=== PATIENT | female | born 1970 | race Caucasian/White ===

== ENCOUNTER 2017-01-19 15:21 | Emergency (ER) | payer MEDICAID, OTHER ==
[~2017-01-19] VITALS: Ht 154.9 cm; Wt 62.9 kg
[~2017-01-19 15:21] MED LIST: BACT PO; ESTR.3 PO; LYRI50CA2 PO
[2017-01-19 15:24] VITALS: BP 133/76; PULSE 101; RESP 18; TEMP 98.7; O2SAT 97
[2017-01-19] MEDS ORDERED: ESTR.3 PO (15:37)
[2017-01-19] MEDS ORDERED: LYRI50CA PO (15:37)
[2017-01-19] MEDS ORDERED: PRED10PA PO (15:39)
[2017-01-19] MEDS ORDERED: CYCL10TA PO (15:39)
[2017-01-19] MEDS ORDERED: HYDR-3516 PO (15:39)
--- NOTE | 2017-01-19 15:39 | PD ---
HPI Chief Complaint: Numbness/Tingling Time Seen by Provider: 15:35 Travel History International Travel<30 days: No Contact w/Intl Traveler<30days: No Traveled to known affect area: No History of Present Illness HPI Patient presents for aggravated lower back pain and right sciatic pain after cleaning house yesterday. Denies any misstep or fall. Denies trauma. Denies any gait abnormalities. PFSH Past Medical History Anxiety: Yes Depression: Yes Heart Rhythm Problems: Yes (MITRAL VALVE PROLAPSE) Cardiovascular Problems: Yes (MITRAL VALVE PROLAPSE) Diminished Hearing: No Gastrointestinal Disorders: Yes ("colitis") Genitourinary: Yes (COLITIS) Musculoskeletal: Yes (BACK PAIN) Immunizations Current: No ?: Not LMP: DAI : 6 Para: 5 Miscarriage: 2 : 0 Ovarian Cysts: Yes Tubal Ligation: Yes Past Surgical History Section: Yes Tonsillectomy: Yes Social History Alcohol Use: Yes (OCCASIONAL) Tobacco Use: Yes (1/2 PPD) Substance Use: No Allergies-Medications (Allergen,Severity, Reaction): Coded Allergies: No Known Allergies (Verified Adverse Reaction, Unknown, 01/19/17) Reported Meds & Prescriptions Reported Meds & Active Scripts Active Reported Premarin (Estrogens Conjugated) 0.3 Mg Tab 0.3 Mg PO DAILY Lyrica (Pregabalin) 50 Mg Cap 50 Mg PO TID Bactrim (Trimethoprim/Sulfamethoxazole) 80 Mg/400 Mg Tab 1 Tab PO BID Review of Systems General / Constitutional: No: Fever Eyes: No: Visual changes HENT: No: Headaches Cardiovascular: No: Chest Pain or Discomfort Respiratory: No: Shortness of Breath Gastrointestinal: No: Abdominal Pain Genitourinary: No: Dysuria Musculoskeletal: No: Pain Skin: No Rash Neurologic: No: Weakness Psychiatric: No: Depression Endocrine: No: Polydipsia Hematologic/Lymphatic: No: Easy Bruising Physical Exam Narrative GENERAL: Well-nourished, well-developed patient. SKIN: Focused skin assessment warm/dry. HEAD: Normocephalic. EYES: No scleral icterus. No injection or drainage. NECK: Supple, trachea midline. No JVD or lymphadenopathy. CARDIOVASCULAR: Regular rate and rhythm without murmurs, gallops, or rubs. RESPIRATORY: Breath sounds equal bilaterally. No accessory muscle use. GASTROINTESTINAL: Abdomen soft, non-tender, nondistended. MUSCULOSKELETAL: No cyanosis, or edema. BACK: Nontender without obvious deformity. No CVA tenderness. Examination lumbar spine reveals no midline tenderness right sided paraspinous pain radiating to the right gluteus Good flexion extension and internal rotation of both hips Data Data Last Documented VS Vital Signs Date Time Temp Pulse Resp B/P (MAP) Pulse Ox O2 Delivery O2 Flow Rate FiO2 01/19/17 15:24 98.7 101 18 133/76 (95) 97 MDM Medical Decision Making Medical Screen Exam Complete: Yes Emergency Medical Condition: Yes Differential Diagnosis Lumbar sacral degenerative disc disease, sciatic pain, vertebral fracture, lumbar radiculopathy Narrative Course Assessment and plan discussed with patient at bedside. Patient declined Toradol shot. Diagnosis Primary Impression: DDD (degenerative disc disease), lumbosacral Additional Impression: Sciatica Qualified Codes: M54.31 - Sciatica, right side Patient Instructions: General Instructions Additional Instructions: Encouraged nonsteroidal anti-inflammatories warm heat gentle stretching and strengthening and massage. Follow-up with PCP. Return to emergency room with any onset of new symptoms. Med/Other Pt SpecificInfo: Prescription(s) given Scripts Prednisone (21) 10 mg tab Dose Pack (Prednisone (21) 10 mg tab Dose Pack) 10 Mg Pack 10 MG PO DIRECTED for Inflammation, #1 DSPK 0 Refills Prov: Yonatan Sethi MD 01/19/17 Cyclobenzaprine (Flexeril) 10 Mg Tab 10 MG PO TID Y for MUSCLE SPASM, #15 TAB 0 Refills Prov: Yonatan Sethi MD 01/19/17 Hydrocodone-Acetaminophen (Hydrocodone-Acetaminophen) 5-325 mg Tab 1 TAB PO Q6H Y for PAIN, #15 TAB 0 Refills Prov: Yonatan Sethi MD 01/19/17 Disposition: 01 DISCHARGE HOME Condition: Good Yonatan Sethi MD Jan 19, 2017 15:39
== END 2017-01-19 15:49 | disposition home or self-care (01) ==
LOC: PHED 15:21
DX: M51.37 Other intervertebral disc degeneration, lumbosacral region (principal); M54.31 Sciatica, right side; I34.1 Nonrheumatic mitral (valve) prolapse; F32.9 Major depressive disorder, single episode, unspecified; F17.210 Nicotine dependence, cigarettes, uncomplicated; Z79.2 Long term (current) use of antibiotics; Z79.899 Other long term (current) drug therapy
CPT/HCPCS: 99284

== ENCOUNTER 2017-08-07 13:26 | Emergency (ER) | payer OTHER ==
[~2017-08-07] VITALS: Ht 154.9 cm; Wt 63.8 kg
[~2017-08-07 13:26] MED LIST changes: -BACT PO; +CYCL10TA PO; +HYDR-3516 PO; +LYRI50CA PO; -LYRI50CA2 PO; +PRED10PA PO
[2017-08-07 13:30] VITALS: BP 136/85; PULSE 85; RESP 16; TEMP 98.5; O2SAT 99
[2017-08-07] MEDS ORDERED: TRAM50TA PO (13:41)
[2017-08-07] MEDS ORDERED: BUPR100T4 PO (13:41)
[2017-08-07] MEDS ORDERED: SODIUM CHLORIDE 0.9% FLUSH 10 ML FLUSH IVF PRN (14:15)
[2017-08-07 14:17] LABS: BASOPHIL # 0.1 TH/MM3 (0-0.2); BASOPHIL % 2.1 % (0.0-2.0); EOSINOPHIL # 0.1 TH/MM3 (0-0.4); EOSINOPHIL % 1.8 % (0.0-4.0); HEMOGLOBIN 12.7 GM/DL (11.6-15.3); LYMPH % 24.8 % (9.0-44.0); LYMPHOCYTE # 1.5 TH/MM3 (1.0-4.8); MEAN CELL VOLUME 87.1 FL (80.0-100.0); MEAN CORPUSCULAR HEMOGLOBIN 27.6 PG (27.0-34.0); MEAN CORPUSCULAR HGB CONC 31.6 % (32.0-36.0); MEAN PLATELET VOLUME 7.8 FL (7.0-11.0); MONO % 6.4 % (0.0-8.0); MONOCYTE # 0.4 TH/MM3 (0-0.9); NEUT % 64.9 % (16.0-70.0); PLATELET COUNT 206 TH/MM3 (150-450); RED BLOOD COUNT 4.59 MIL/MM3 (4.00-5.30); RED CELL DISTRIBUTION WIDTH 12.6 % (11.6-17.2); WHITE BLOOD COUNT 6.1 TH/MM3 (4.0-11.0)
[2017-08-07 14:24] LABS: CHLORIDE 108 MEQ/L (98-107); SODIUM (NA) 139 MEQ/L (136-145)
[2017-08-07 14:26] LABS: CALCIUM 9.1 MG/DL (8.5-10.1)
[2017-08-07 14:27] LABS: BICARBONATE 23.8 MEQ/L (21.0-32.0); BLOOD UREA NITROGEN 17 MG/DL (7-18); GLUCOSE,RANDOM 106 MG/DL (74-106)
--- NOTE | 2017-08-07 14:27 | RADRPT ---
EXAM DATE: 08/07/2017 2:23 PM EDT AGE/SEX: 46 years / Female INDICATIONS: Left hand numbness. Difficulty walking. Resolved slurred speech. Cephalgia. Evaluate for cerebrovascular accident. CLINICAL DATA: This is the patient's initial encounter. Patient reports that signs and symptoms have been present for 1 day and indicates a pain score of 6/10. MEDICAL/SURGICAL HISTORY: Cardiovascular disease. Colitis. Tubal ligation. section. RADIATION DOSE: 56.19 CTDI (mGy) COMPARISON: No prior [facility] exams available for comparison. TECHNIQUE: CT of the head without contrast. Using automated exposure control and adjustment of the mA and/or kV according to patient size, radiation dose was kept as low as reasonably achievable to ob tain optimal diagnostic quality images. FINDINGS: There is no evidence for intracranial hemorrhage, mass effect, mass lesions, edema, or extra-axial fl uid collections. The visualized bony structures appear intact. The ventricles are normal size for t he patient's age. There are no signs of acute infarction for technique. CONCLUSION: Unremarkable study. Electronically signed by: Leny Alejandre MD 08/07/2017 2:25 PM EDT
[2017-08-07 14:30] LABS: CREATININE 0.78 MG/DL (0.50-1.00); GLOMERULAR FILTRATION RATE 79 ML/MIN (>89)
--- NOTE | 2017-08-07 14:30 | PD ---
HPI . Left upper extremity numbness Chief Complaint: Neuro Symptoms/ Deficits Time Seen by Provider: 13:51 Travel History International Travel<30 days: No Contact w/Intl Traveler<30days: No Traveled to known affect area: No History of Present Illness HPI Patient presents with a chief complaint of left upper extremity numbness. It seems that she has this frequently usually on awakening. The symptoms will later resolved. Today, she states that she also had slurred speech and was listing to the left. She states that she was having difficulty putting her thoughts together. She subsequently decided to come to us for evaluation. Her left upper extremity pain is rated 6/10. She is unaware of any modifying factors. PFSH Past Medical History Anxiety: Yes Depression: Yes Heart Rhythm Problems: Yes (MITRAL VALVE PROLAPSE) Cardiovascular Problems: Yes (MITRAL VALVE PROLAPSE) Diminished Hearing: No Gastrointestinal Disorders: Yes ("colitis") Genitourinary: Yes (COLITIS) Musculoskeletal: Yes (BACK PAIN) Immunizations Current: No Influenza Vaccination: No ?: Not : 6 Para: 5 Miscarriage: 2 : 0 Ovarian Cysts: Yes Tubal Ligation: Yes Past Surgical History Section: Yes Tonsillectomy: Yes Social History Alcohol Use: Yes (OCCASIONAL) Tobacco Use: Yes (1/2 PPD) Substance Use: No Allergies-Medications (Allergen,Severity, Reaction): Coded Allergies: No Known Allergies (Verified Adverse Reaction, Unknown, 08/07/17) Reported Meds & Prescriptions Reported Meds & Active Scripts Active Reported Bupropion HCl 100 Mg Tab 100 Mg PO BID Tramadol (Tramadol HCl) 50 Mg Tab 50 Mg PO Q4H PRN Review of Systems Except as stated in HPI: all other systems reviewed are Neg Eyes: No: Blurred Vision HENT: No: Headaches Cardiovascular: No: Chest Pain or Discomfort Respiratory: No: Cough, Shortness of Breath Gastrointestinal: No: Nausea, Vomiting Musculoskeletal: Positive: Myalgias, Pain (Left upper extremity), No: Limited ROM Neurologic: Positive: Ataxia, Change in Mentation, Slurred Speech, No: Headache Physical Exam Narrative GENERAL: This is a 46-year-old female who appears her stated age. She appears to be resting comfortably on the stretcher. SKIN: warm/dry. Normal color and turgor. Normal color and turgor. Normal color and turgor. HEAD: Normocephalic. Atraumatic. EYES: Pupils equal and round. Extraocular movements are intact. ENT: Mucous membranes pink and moist. NECK: Supple. Full range of motion without pain.. CARDIOVASCULAR: Regular rate and rhythm. Heart sounds are normal. RESPIRATORY: No accessory muscle use. Clear to auscultation. Breath sounds equal bilaterally. MUSCULOSKELETAL: No obvious deformities. Normal muscle tone. NEUROLOGICAL: Awake and alert. No obvious cranial nerve deficits. Muscular strength in her upper extremities is full and equal in all muscle groups. [id number] exam is intact. Normal speech. PSYCHIATRIC: Appropriate mood and affect; insight and judgment normal. Data Data Last Documented VS Vital Signs Date Time Temp Pulse Resp B/P (MAP) Pulse Ox O2 Delivery O2 Flow Rate FiO2 08/07/17 17:54 58 16 96/64 (75) 100 08/07/17 13:30 98.5 Orders Orders Complete Blood Count With Diff (08/07/17 14:05) Basic Metabolic Panel (Bmp) (08/07/17 14:05) Troponin I (08/07/17 14:05) Ct Brain W/O Iv Contrast(Rout) (08/07/17 14:05) Ecg Monitoring (08/07/17 14:05) Iv Access Insert/Monitor (08/07/17 14:05) Oximetry (08/07/17 14:05) Sodium Chloride 0.9% Flush (Ns Flush) (08/07/17 14:15) Mri Brain W/O Contrast (08/07/17 14:46) Electrocardiogram (08/07/17 13:37) Prochlorperazine Inj (Compazine Inj) (08/07/17 16:00) Diphenhydramine Inj (Benadryl Inj) (08/07/17 16:00) Sodium Chlor 0.9% 1000 Ml Inj (Ns 1000 M (08/07/17 17:30) Labs Laboratory Tests Test 08/07/17 14:00 White Blood Count 6.1 TH/MM3 Red Blood Count 4.59 MIL/MM3 Hemoglobin 12.7 GM/DL Hematocrit 40.0 % Mean Corpuscular Volume 87.1 FL Mean Corpuscular Hemoglobin 27.6 PG Mean Corpuscular Hemoglobin Concent 31.6 % Red Cell Distribution Width 12.6 % Platelet Count 206 TH/MM3 Mean Platelet Volume 7.8 FL Neutrophils (%) (Auto) 64.9 % Lymphocytes (%) (Auto) 24.8 % Monocytes (%) (Auto) 6.4 % Eosinophils (%) (Auto) 1.8 % Basophils (%) (Auto) 2.1 % Neutrophils # (Auto) 4.0 TH/MM3 Lymphocytes # (Auto) 1.5 TH/MM3 Monocytes # (Auto) 0.4 TH/MM3 Eosinophils # (Auto) 0.1 TH/MM3 Basophils # (Auto) 0.1 TH/MM3 CBC Comment DIFF FINAL Differential Comment Blood Urea Nitrogen 17 MG/DL Creatinine 0.78 MG/DL Random Glucose 106 MG/DL Calcium Level 9.1 MG/DL Sodium Level 139 MEQ/L Potassium Level 4.2 MEQ/L Chloride Level 108 MEQ/L Carbon Dioxide Level 23.8 MEQ/L Anion Gap 7 MEQ/L Estimat Glomerular Filtration Rate 79 ML/MIN Troponin I LESS THAN 0.02 NG/ML MDM Medical Decision Making Medical Screen Exam Complete: Yes Emergency Medical Condition: Yes Interpretation(s) EKG has a normal sinus rhythm with no acute ischemic changes Differential Diagnosis Differential diagnosis includes but is not limited to TIA, CVA, brain tumor, migraine, anxiety Narrative Course This patient presents complaining with an ongoing history of left upper extremity pain and numbness on awakening. Her new symptom today is slurred speech, listing to the left and a foggy sensorium. Stroke evaluation is in process. Last Impressions Head CT 08/07/17 1405 Signed Impressions: CONCLUSION: Unremarkable study. CBC & BMP Diagram 08/07/17 14:00 Calcium Level 9.1 trop < 0.02 This patient is agreeable to an observation admission for further evaluation of this neurological episode that she had this morning. The case was discussed with Dr. Lawton who recommends MRI followed by discharge if the MRI is normal. The MRI has been ordered. In the meantime, the patient's blood pressure has trended downward. Systolic is now 78. She is receiving a fluid bolus. Her vital signs will be rechecked following that. Last Impressions Brain MRI 08/07/17 1446 Signed Impressions: CONCLUSION: 1. A few small nonspecific white matter lesions involving the subcortical whit e matter of both frontal lobes. These may simply relate to chronic small vessel ischemic change. A demyelinating process cannot be completely excluded. 2. No acute intracranial abnormality. 3. Chronic left maxillary sinus disease. Head CT 08/07/17 1764 Signed Impressions: CONCLUSION: Unremarkable study. The patient does have a family doctor. She will be discharged home with instructions to follow-up with her primary care physician for further evaluation of the MRI abnormalities. In the meantime, her blood pressure has improved with IV fluids. The patient is not having any symptoms of hypotension such as dizziness. Physician Communication Physician Communication Dr. Lawton Diagnosis Primary Impression: Neurological complaint Additional Impression: Hypotension Qualified Codes: I95.9 - Hypotension, unspecified Additional Instructions: Follow up with Dr. Roca Disposition: 01 DISCHARGE HOME Condition: Stable Bria Nixon MD Aug 07, 2017 14:30
[2017-08-07 14:35] LABS: TROPONIN I LESS THAN 0.02 NG/ML (0.02-0.05)
[2017-08-07] MEDS ORDERED: diphenhydrAMINE HCL 50 MG/ML VIAL IV PUSH ONE (16:00)
[2017-08-07] MEDS ORDERED: PROCHLORPERAZINE INJ 10 MG/2 ML VIAL IV PUSH ONE (16:00)
[2017-08-07 16:21] VITALS: BP 95/56; PULSE 65; PULSE 75; RESP 16; O2SAT 100; O2SAT 99
[2017-08-07 17:26] VITALS: BP 78/46; PULSE 72; RESP 16; O2SAT 99
[2017-08-07] MEDS ORDERED: SODIUM CHLOR 0.9% 1000 ML INJ 1,000 ML IV ONE (17:30)
--- NOTE | 2017-08-07 17:34 | RADRPT ---
EXAM DATE: 08/07/2017 5:28 PM EDT AGE/SEX: 46 years / Female INDICATIONS: Slurred speech. NUMBNESS, DIZZY, HEADACHES, UNBALANCED X 3 DAYS. CLINICAL DATA: This is the patient's initial encounter. Patient reports that signs and symptoms have been present for 1 day and indicates a pain score of 0/10. MEDICAL/SURGICAL HISTORY: None. section. COMPARISON: No prior exams available for comparison. TECHNIQUE: Multiplanar, multisequence examination of the brain was performed without contrast. FINDINGS: Cerebrum: The ventricles are normal for age. No evidence of midline shift, mass lesion, hemorrhage or acute infarction. No extraaxial fluid collections are seen. The pituitary gland and suprasellar cistern are normal in configuration. White Matter: A few small nonspecific foci of high FLAIR signal abnormality involving the subcortica l white matter of both frontal lobes. No involvement of the corpus callosum or subcortical U fibers.. Posterior Fossa: The cerebellum and brainstem are intact. The 4th ventricle is midline. The cerebel lopontine angle is unremarkable. The cerebellar tonsils are normal in position. Diffusion Imaging: No focal areas of restricted diffusion are seen. No evidence of acute infarction . Extracranial: The visualized portions of the orbits are unremarkable. Mucosal thickening involving t he left maxillary sinus without air-fluid level. Remaining paranasal sinuses and mastoid air cells ar e clear. CONCLUSION: 1. A few small nonspecific white matter lesions involving the subcortical white matter of both front al lobes. These may simply relate to chronic small vessel ischemic change. A demyelinating process ca nnot be completely excluded. 2. No acute intracranial abnormality. 3. Chronic left maxillary sinus disease. Electronically signed by: Chris Chandra MD 08/07/2017 5:33 PM EDT
[2017-08-07 17:54] VITALS: BP 96/64; PULSE 58; RESP 16; O2SAT 100
[2017-08-07 18:55] VITALS: BP 96/56
--- NOTE | 2017-08-08 20:09 | EKG ---
Date Performed: 08/07/2017 Time Performed: 13:37:50 PTAGE: 46 years EKG: Sinus rhythm Minimal Inferolateral ST segment changes Since previous tracing, no significant serial change noted ABNORMAL ECG PREVIOUS TRACING : 12/26/2013 16.30 DOCTOR: Jo Roque Interpretating Date/Time 08/08/2017 20:07:49
== END 2017-08-07 18:58 | disposition home or self-care (01) ==
LOC: PHED 13:26
DX: R29.90 Unspecified symptoms and signs involving the nervous system (principal); I95.9 Hypotension, unspecified; M79.602 Pain in left arm; R47.81 Slurred speech; R94.31 Abnormal electrocardiogram [ECG] [EKG]; F41.9 Anxiety disorder, unspecified; F32.9 Major depressive disorder, single episode, unspecified; I34.1 Nonrheumatic mitral (valve) prolapse; F17.200 Nicotine dependence, unspecified, uncomplicated
CPT/HCPCS: 70450; 70551; 80048; 84484; 85025; 93005; 96361; 96374; 96375; 99285; J0780; J1200; J7030